=== PATIENT | female | born 1935 | race Caucasian/White ===

== ENCOUNTER 2024-10-24 10:43 | Emergency (ER) | payer OTHER ==
[~2024-10-24] VITALS: Ht 157.5 cm; Wt 56.7 kg
[2024-10-24 11:06] VITALS: BP 134/80; TEMP 97.8; O2SAT 95
[2024-10-24] MEDS ORDERED: DOXY100C2 PO (11:23)
[2024-10-24] MEDS ORDERED: CEFD300C3 PO (11:23)
== END 2024-10-24 11:27 | disposition home or self-care (01) ==
LOC: ER 10:53
DX: L03.211 Cellulitis of face (principal)

== ENCOUNTER 2024-10-26 12:30 | Emergency (ER) | payer OTHER ==
[~2024-10-26] VITALS: Ht 157.5 cm; Wt 56.7 kg
[~2024-10-26 12:30] MED LIST: CEFD300C3 PO; DOXY100C2 PO
[2024-10-26 13:07] VITALS: BP 133/80; TEMP 98.5; O2SAT 98
== END 2024-10-26 13:18 | disposition home or self-care (01) ==
LOC: ER 12:34
DX: Z00.00 Encounter for general adult medical examination without abnormal findings (principal); L03.211 Cellulitis of face; Z60.2 Problems related to living alone; Z79.899 Other long term (current) drug therapy